=== PATIENT | female | born 1995 | race Caucasian/White ===

== ENCOUNTER 2019-05-26 06:02 | Inpatient (IN) | payer BC ==
[2019-05-26] VITALS (55 sets, daily range): BP systolic 91–145; BP diastolic 53–103
[~2019-05-26] VITALS: Ht 160 cm; Wt 70.4 kg
--- OUTSIDE RECORDS SUMMARY | 2019-05-26 06:07 | XMS REPORT | Continuity of Care Document ---
Author Organization Unknown Address Unknown Allergies There is no data. Medications There is no data. Problems There is no data. Procedures There is no data. Results Test Result Range SYPHILIS (RPR W/ REFLEX CONFIRMATION) - 03/09/19 15:09 RPR (DX) W/REFL TITER AND CONFIRMATORY TESTING NON-REACTIVE NON-REACTIVE CULTURE, ANAEROBIC AND AEROBIC - 04/20/19 13:21 CULTURE, ANAEROBIC BACTERIA W/GRAM STAIN SEE NOTE NRG CULTURE, AEROBIC BACTERIA SEE NOTE NRG CULTURE, GROUP B STREP (VAGINAL) - 05/12/19 17:31 STREPTOCOCCUS, GROUP B CULTURE SEE NOTE NRG Encounters ACCT No. Visit Date/Time Discharge Status Pt. Type Provider Facility Loc./Unit Complaint [id number] 05/19/2019 13:00:00 05/19/2019 23:59:59 CLS Outpatient KATHARINE BELTRÁN LAC [facility] [id number] 05/12/2019 14:15:00 Document Registration [id number] 04/20/2019 13:00:00 Document Registration [id number] 03/09/2019 13:45:00 Document Registration
--- NOTE | 2019-05-26 06:15 | NUR ---
BRENNENJOSE Chaparro presented to unit via ambulation from ED, accompanied by , with c/o INDUCTION. BRENNENJOSE Chaparro weighed, gowned, voided, and to bed. EFHM and TOCO applied, VS taken. BRENNENJOSE Chaparro oriented to bed controls, call light, TV, heat, and A/C controls.
[2019-05-26] MEDS ORDERED: PREN1TAB79 PO (06:16)
[2019-05-26] MEDS ORDERED: MINERAL OIL CONCENTRATE 99.9% 15 ML UDC TOP PRN (06:30)
[2019-05-26] MEDS ORDERED: OXYTOCIN/NORMAL SALINE 500 ML IV ONE (07:01)
[2019-05-26 07:06] LABS: BASOPHILS % (AUTO) 0 % (0-10); EOSINOPHILS # (AUTO) 0.1 10^3/uL (0.0-0.3); EOSINOPHILS % (AUTO) 1 % (0-10); HEMATOCRIT 36 % (35-52); HEMOGLOBIN 11.9 G/DL (11.5-16.0); LYMPHOCYTES # (AUTO) 1.5 X 10^3 (1.0-4.0); LYMPHOCYTES % (AUTO) 19 % (12-44); MEAN CORPUSCULAR HEMOGLOBIN 28 PG (25-34); MEAN CORPUSCULAR HGB CONC 33 G/DL (32-36); MEAN CORPUSCULAR VOLUME 84 FL (80-99); MEAN PLATELET VOLUME 13.1 FL (7.4-10.4); MONOCYTES # (AUTO) 0.7 X 10^3 (0.0-1.0); MONOCYTES % (AUTO) 9 % (0-12); NEUTROPHILS # (AUTO) 5.5 X 10^3 (1.8-7.8); NEUTROPHILS % (AUTO) 70 % (42-75); PLATELET COUNT 171 10^3/uL (130-400); WHITE BLOOD COUNT 7.8 10^3/uL (4.3-11.0)
[2019-05-26] MEDS: D5 LR IV SOLUTION 1,000 ML IV SCH ×2 (07:10→12:29)
--- NOTE | 2019-05-26 07:21 | History & Physical-OB/GYN ---
History of Present Illness History of Present Illness Reason for visit/HPI Scheduled Pitocin Induction of Labor Date of Admission May 26, 2019 at 06:02 Date Seen by a Provider: May 26, 2019 Time Seen by a Provider: 07:05 I consulted on this patient on 05/26/19 07:16 Attending Physician Gilbert Petersen DO Admitting Physician Gilbert Petersen DO Consult Allergies and Home Medications Allergies Coded Allergies: prochlorperazine (Verified Allergy, Intermediate, pt freaks out, 05/26/19) Home Medications Vit W-Ca,Fe,FA(<1 mg) 1 Each Tablet, 1 EACH PO DAILY, (Reported) Patient Home Medication List Home Medication List Reviewed: Yes Past Jkfufbj-Tsmsen-Yirvhp Hx Patient Social History Marrital Status: Number of Children: 0 Number of living children: 0 Employed/Student: employed Recent Foreign Travel: No Contact w/other who traveled: No Review of Systems Constitutional: no symptoms reported, see HPI Physical Exam Physical Exam Vital Signs Capillary Refill : Labs Laboratory Tests 05/26/19 06:45: White Blood Count 7.8, Red Blood Count 4.28L, Hemoglobin 11.9, Hematocrit 36, Mean Corpuscular Volume 84, Mean Corpuscular Hemoglobin 28, Mean Corpuscular Hemoglobin Concent 33, Red Cell Distribution Width 13.0, Platelet Count 171, Mean Platelet Volume 13.1H, Neutrophils (%) (Auto) 70, Lymphocytes (%) (Auto) 19, Monocytes (%) (Auto) 9, Eosinophils (%) (Auto) 1, Basophils (%) (Auto) 0, Neutrophils # (Auto) 5.5, Lymphocytes # (Auto) 1.5, Monocytes # (Auto) 0.7, Eosinophils # (Auto) 0.1, Basophils # (Auto) 0.0 General Appearance: No Apparent Distress Respiratory: Chest Non Tender, Lungs Clear, Normal Breath Sounds Cardiovascular: Regular Rate, Rhythm, No Murmur Abdominal: normal bowel sounds, non tender, distended (Gravid) Extremity: Normal Inspection, Non Tender Assessment/Plan Assessment and Plan Assessment: Intrauterine at 39 weeks Plan : Pitocin Induction of Labor. Artificial Rupture of Membranes. Placement of Epidural Anesthesia. Expect a normal spontaneous vaginal delivery Admission Diagnosis Admission Status: Inpatient Order (span 2 midnights) Reason for Inpatient Admission: Pitocin Induction of Labor GILBERT PETERSEN DO May 26, 2019 07:21
[2019-05-26] MEDS ORDERED: SUFENTA 0.6MCG/ML BUPIVA 0.125 100 ML ONE (07:27)
[2019-05-26] MEDS ORDERED: fentaNYL INJECTION 100 MCG/2 ML AMP ONE ×2 (08:16→13:47)
[2019-05-26] MEDS ORDERED: BUPIVACAINE 0.25% 30 ML (SENSORCAINE) VIAL ONE ×2 (08:17→15:26)
[2019-05-26] MEDS ORDERED: LIDOCAINE PF 2% 5 ML (XYLOCAINE) VIAL ONE ×2 (08:17→13:40)
[2019-05-26] MEDS ORDERED: LACTATED RINGERS 1,000 ML IV ONE ×2 (09:20)
[2019-05-26] MEDS ORDERED: OXYTOCIN/NORMAL SALINE 500 ML IV SCH ×2 (09:26→16:49)
--- NOTE | 2019-05-26 09:29 | NUR ---
Riddhi Horan DEVELOPMENT EXPERT notified of pt complaint of pain in LLQ/Lt back pain. Epidural infusing and bolus given without relief. Pt also has anxiety. Rates pain 7.
[2019-05-26] MEDS ORDERED: EPIDURAL (SUFENTA 0.6MCG/ML BUPIVA 0.125%) 100 ML BAG EPI PRN (09:30)
[2019-05-26] MEDS ORDERED: NALOXONE 0.4 MG/ML 1 ML (NARCAN) VIAL IV PRN (09:30)
[2019-05-26] MEDS ORDERED: ONDANSETRON 4 MG/2 ML (SDV) Z0FRAN IV PRN (09:30)
[2019-05-26] MEDS ORDERED: LIDOCAINE 1% INJ 20 ML 20 ML VIAL ONE ×2 (12:22→15:05)
[2019-05-26] MEDS ORDERED: CATHETER FLUSH 10 ML SYR IV SCH ×2 (14:00→22:00)
--- NOTE | 2019-05-26 16:49 | OB Labor & Delivery Record ---
Vag Delivery Note Vag Delivery Note Date of Delivery: 05/26/19 Preoperative Diagnosis: Mary Jo Crowder is a (23 /Para / ,39 Gestational Age (wks)with [] Postoperative Diagnosis: Same Surgeon: TIMA LITTLEJOHN Procurement Buyer: [None] Anesthesia: [Epidural] Delivery Type: [Normal Spontaneous Vaginal Delivery with Midline Episiotomy and Fourth Degree Extension and Repair] Findings: [] Viable [male] infant, apgars [], weight [7 pounds, 2 ounces] Lacerations: Midline episiotomy with fourth degree extension and repair Intact placenta with 3 vessel cord. No nuchal cord, body cord or shoulder dystocia Cytotec 800 mcg placed for hemorrhage prophylaxis Estimated Blood Loss: [300] ml Complications: Shoulder and body cord Condition: Stable Description of Procedure: The patient is a 23 year old female who presented [for Pitocin Induction]. She was admitted and informed consent was obtained. Her labor course was unremarkable. She progressed to complete dilatation and began to push. She was then set up for delivery. The infant's head was delivered atraumatically in the [BACILIO] position. The shoulders and remainder of the infant's body were then delivered without difficulty. Upon delivery, the head was held below the level of the perineum and the mouth and nares were bulb suctioned. The cord was doubly clamped and cut and the infant was handed off to the pediatric staff. An intact placenta with 3-vessel cord delivered via Cassius and there was found to be minimal bleeding.~ Vigorous fundal massage was performed and the fundus was found to be firm. IV oxytocin was given. Examination of the vagina and perineum revealed a [fourth degree extension over midline episiotomy] repaired in the usual fashion with 2-0, 3-0 and 4-0 vicryl suture. Following the repair, sponge, instrument and needle counts were correct. Mom and baby were both in stable condition in the labor suite. Vitals - Labs Vital Signs - I&O Vital Signs Date Time Temp Pulse Resp B/P (MAP) Pulse Ox O2 Delivery O2 Flow Rate FiO2 05/26/19 14:15 89 20 129/76 (93) 99 Room Air 05/26/19 14:00 91 20 124/85 (98) 100 Room Air 05/26/19 13:45 97.0 102 20 138/103 (115) 100 Room Air 05/26/19 13:30 106 20 125/78 (94) 100 Room Air 05/26/19 11:15 88 20 119/88 (98) 100 Room Air 05/26/19 11:00 86 20 113/74 (87) 100 Room Air 05/26/19 10:45 88 20 118/75 (89) 100 Room Air 05/26/19 10:30 106 20 114/82 (93) 100 Room Air 05/26/19 10:15 73 20 103/69 (80) 98 Room Air 05/26/19 10:00 80 20 108/68 (81) 100 Room Air 05/26/19 09:45 97.6 78 20 113/77 (89) 100 Room Air 05/26/19 09:30 102 20 113/77 (89) 100 Room Air 05/26/19 09:15 95 20 145/76 (99) 100 Room Air 05/26/19 09:00 105 18 145/83 (103) 98 Room Air 05/26/19 08:45 107 18 124/76 (92) Room Air 05/26/19 08:30 107 18 144/68 (93) Room Air 05/26/19 08:15 107 18 144/68 (93) Room Air 05/26/19 08:00 102 18 110/76 (87) Room Air 05/26/19 07:45 104 18 121/86 (98) Room Air 05/26/19 07:30 104 18 121/86 (98) Room Air 05/26/19 07:15 99.3 106 18 123/93 (103) Room Air Labs Laboratory Tests 05/26/19 06:45: White Blood Count 7.8, Red Blood Count 4.28L, Hemoglobin 11.9, Hematocrit 36, Mean Corpuscular Volume 84, Mean Corpuscular Hemoglobin 28, Mean Corpuscular Hemoglobin Concent 33, Red Cell Distribution Width 13.0, Platelet Count 171, Mean Platelet Volume 13.1H, Neutrophils (%) (Auto) 70, Lymphocytes (%) (Auto) 19, Monocytes (%) (Auto) 9, Eosinophils (%) (Auto) 1, Basophils (%) (Auto) 0, Neutrophils # (Auto) 5.5, Lymphocytes # (Auto) 1.5, Monocytes # (Auto) 0.7, Eosinophils # (Auto) 0.1, Basophils # (Auto) 0.0 TIMA LITTLEJOHN DO May 26, 2019 16:49
[2019-05-26] MEDS ORDERED: TETANUS,DIPTH,PERTUSS P/F (BOOSTRIX) 0.5 ML VIAL IM ONE (17:00)
[2019-05-26] MEDS ORDERED: WITCH HAZEL(TUCKS) 40 EA JAR TOP PRN (17:00)
[2019-05-26] MEDS ORDERED: MEASLES,MUMPS,RUBELLA 1 EA INJ SQ ONE (17:00)
[2019-05-26] MEDS: IBUPROFEN 800 MG (MOTRIN) TAB PO SCH (17:20)
[2019-05-26] MEDS: BENZOCAINE/MENTHOL (DERMOPLAST) 56 ML CAN TP PRN (17:25)
[2019-05-26] MEDS: ACETAMINOPHEN 500 MG TAB (TYLENOL) PO SCH (19:20)
--- NOTE | 2019-05-26 21:30 | NUR ---
Transferred to room 311 via wheelchair.
[2019-05-26] MEDS: DOCUSATE SODIUM 100 MG (COLACE) CAP PO SCH (21:39)
--- NOTE | 2019-05-26 23:00 | NUR ---
Infant to nsy while pt rests.
[2019-05-27] MEDS: IBUPROFEN 800 MG (MOTRIN) TAB PO SCH ×3 (01:13→17:29)
[2019-05-27] MEDS: ACETAMINOPHEN 500 MG TAB (TYLENOL) PO SCH ×3 (01:13→14:39)
--- NOTE | 2019-05-27 01:14 | NUR ---
Pt up to void at this time.
[2019-05-27 03:00] VITALS: BP 122/77
--- NOTE | 2019-05-27 03:15 | NUR ---
Instructions and demonstration provided on how to swaddle infant.
[2019-05-27 06:35] VITALS: BP 118/80
--- NOTE | 2019-05-27 06:43 | Discharge Summary ---
Diagnosis/Chief Complaint Date of Admission May 26, 2019 at 06:02 Date of Discharge May 27, 2019 Discharge Date: May 27, 2019 Discharge Time: 16:30 Admission Diagnosis Admission Diagnosis Intrauterine at 39 weeks Discharge Diagnosis Intrauterine at 39 weeks--delivered Reason Hospital Visit Scheduled Pitocin Induction of Labor Discharge Summary Hospital Course Was the Problem List Reviewed?: Yes Hospital Course Ms. Crowder was admitted for Pitocin Induction of Labor. She progressed to complete, delivered a healthy viable male infant. She was started on Pitocin, oral pain medications and comfort measures were instituted. Her day of delivery was unremarkable. Day #1 was unremarkable--bleeding had slowed, pain was controlled with oral medications and was doing well. Her vital signs remained stable throughout her hospitalization. I will discharge her to home with instructions, prescriptions, and a follow up appointment. Labs Laboratory Tests 05/26/19 06:45: Red Blood Count 4.28L, Mean Platelet Volume 13.1H Procedures None. Discharge Physical Examination Allergies: Coded Allergies: prochlorperazine (Verified Allergy, Intermediate, pt freaks out, 05/26/19) Vitals & I&Os Vital Signs Date Time Temp Pulse Resp B/P (MAP) Pulse Ox O2 Delivery O2 Flow Rate FiO2 05/27/19 03:00 97.2 89 18 122/77 (92) Room Air 05/26/19 22:50 97 General Appearance: Alert, Oriented X3, Cooperative HEENT: Atraumatic Respiratory: Clear to Auscultation, Normal Air Movement Cardiovascular: Regular Rate, No Murmurs Abdominal: Normal Bowel Sounds, Soft, No Tenderness Extremities: No Clubbing, No Cyanosis Skin: No Rashes Neuro: Normal Gait, Normal Speech, Cranial Nerves 3-12 NL Psych/Mental Status: Mental Status NL Discharge Home Medications Reviewed and agree with Discharge Medication list on patient's Discharge Instruction sheet Instructions to Patient/Family Please see electronic discharge instructions given to patient. Clinical Quality Measures DVT/VTE Risk/Contraindication: Risk Factor Score Per Nursin RFS Level Per Nursing on Admit: 1=Low/No VTE PPX TIMA LITTLEJOHN DO May 27, 2019 06:43
[2019-05-27] MEDS ORDERED: OXC5T PO (06:46)
[2019-05-27] MEDS ORDERED: ACET-77 PO (06:46)
[2019-05-27] MEDS ORDERED: DOCU100C37 PO (06:46)
[2019-05-27] MEDS ORDERED: IBUP-1780 PO (06:46)
[2019-05-27 06:50] LABS: BASOPHILS % (AUTO) 0 % (0-10); EOSINOPHILS # (AUTO) 0.1 10^3/uL (0.0-0.3); EOSINOPHILS % (AUTO) 1 % (0-10); HEMATOCRIT 35 % (35-52); HEMOGLOBIN 11.2 G/DL (11.5-16.0); LYMPHOCYTES # (AUTO) 2.1 X 10^3 (1.0-4.0); LYMPHOCYTES % (AUTO) 17 % (12-44); MEAN CORPUSCULAR HEMOGLOBIN 28 PG (25-34); MEAN CORPUSCULAR HGB CONC 32 G/DL (32-36); MEAN CORPUSCULAR VOLUME 86 FL (80-99); MEAN PLATELET VOLUME 12.3 FL (7.4-10.4); MONOCYTES % (AUTO) 8 % (0-12); NEUTROPHILS % (AUTO) 74 % (42-75); PLATELET COUNT 166 10^3/uL (130-400); RED CELL DISTRIBUTION WIDTH 13.4 % (10.0-14.5); WHITE BLOOD COUNT 12.2 10^3/uL (4.3-11.0)
[2019-05-27] MEDS: DOCUSATE SODIUM 100 MG (COLACE) CAP PO SCH (08:30)
[2019-05-27 08:40] VITALS: BP 122/68
--- NOTE | 2019-05-27 09:00 | NUR ---
Ice pack given.
[2019-05-27 12:20] VITALS: BP 120/83
--- NOTE | 2019-05-27 14:05 | Anesthesia-Regional Post-Op ---
Regional Patient Condition Mental Status: Alert, Oriented x3 Circulation: Same as Pre-Op Headache: Absent Sensation: Full Recovery Motor Block: Absent Post Op Complications Complications None Follow Up Care/Instructions Patient Instructions None needed. Anesthesia/Patient Condition Patient is doing well, no complaints, stable vital signs, no apparent adverse anesthesia problems. No complications reported per nursing. GAY MENDEZ CRNA May 27, 2019 14:05
[2019-05-27] MEDS ORDERED: TETANUS,DIPTH,PERTUSS P/F (BOOSTRIX) 0.5 ML VIAL IM ONE (18:14)
--- NOTE | 2019-05-27 19:17 | NUR ---
Discharge instructions explained to pt with copy provided to pt along with prescriptions. Pt notified of follow up appt. Pt verbalizes understanding of instructions, signs to verify. All questions answered to pt satisfaction. Pads, underwear, bath wipes, and dermoplast provided per pt request. Ice pack provided as well. Instructed pt to call when ready for dismissal.
[2019-05-27] MEDS: BENZOCAINE/MENTHOL (DERMOPLAST) 56 ML CAN TP PRN (19:30)
--- NOTE | 2019-05-27 20:15 | NUR ---
Pt taken off unit via wheelchair to private vehicle with all personal belongings, accompanied by RN, S.O. and infant. no s/s of distress noted.
== END 2019-05-27 20:15 | disposition home or self-care (01) | DRG 768 ==
LOC: LDRP 06:02
PROVIDERS: ADMIT Obstetrics & Gynecology; ATTEND Obstetrics & Gynecology
PROC: 10E0XZZ Delivery of Products of Conception, External Approach (ICD-10-PCS; principal; 2019-05-26)
PROC: 0DQQ0ZZ Repair Anus, Open Approach (ICD-10-PCS; 2019-05-26)
PROC: 0DQP0ZZ Repair Rectum, Open Approach (ICD-10-PCS; 2019-05-26)
PROC: 0W8NXZZ Division of Female Perineum, External Approach (ICD-10-PCS; 2019-05-26)
PROC: 3E033VJ Introduction of Other Hormone into Peripheral Vein, Percutaneous Approach (ICD-10-PCS; 2019-05-26)
DX: O70.3 Fourth degree perineal laceration during delivery (principal); O69.82X0 Labor and delivery complicated by other cord entanglement, without compression, not applicable or unspecified; Z3A.39 39 weeks gestation of pregnancy; Z37.0 Single live birth
CPT/HCPCS: 36415; 85025; 86850; 86900; 86901; 90715

== ENCOUNTER 2020-06-30 11:42 | Outpatient (RCR) | payer BC ==
[~2020-06-30] VITALS: Ht 162.6 cm; Wt 65.5 kg
[~2020-06-30 11:42] MED LIST: ACET-78 PO; DOCU100C37 PO; IBUP-1780 PO; OXC5T PO; PREN1TAB79 PO
[2020-06-30 11:50] VITALS: BP 141/91
[2020-06-30] MEDS ORDERED: ONDANSETRON 4 MG/2 ML (SDV) Z0FRAN ONE (12:45)
[2020-06-30] MEDS ORDERED: ONDANSETRON 4 MG/2 ML (SDV) Z0FRAN IV ONE (13:00)
== END 2020-09-28 | disposition home or self-care (01) ==
LOC: SDC 11:42
PROVIDERS: ATTEND Obstetrics & Gynecology
DX: O21.0 Mild hyperemesis gravidarum (principal); Z3A.00 Weeks of gestation of pregnancy not specified
CPT/HCPCS: 36569; 76937; 96374; C1751

== ENCOUNTER 2020-07-06 17:42 | Emergency (ER) | payer BC ==
[~2020-07-06] VITALS: Ht 162.6 cm; Wt 66.1 kg
--- NOTE | 2020-07-06 17:57 | ED GI ---
General Stated Complaint: VOMITING,DEHYDRATION Source of Information: Patient Exam Limitations: No Limitations History of Present Illness Date Seen by Provider: Jul 06, 2020 Time Seen by Provider: 17:50 Initial Comments The patient is a pleasant 24-year-old female who states she is 14 weeks and presents for evaluation of nausea and vomiting. She has been doing with hyperemesis gravidarum during this and has a PICC line in the right arm. She states that a home health nurse was doing a routine visit today and changing her dressing when she felt like her heart rate was fluctuating between 70 and 100 bpm. At that time the patient was not having any symptoms. Apparently the home health nurse called the patient's REWEAVER, Dr. Petersen, and told her to come to the emergency department to be evaluated. Additionally the patient has been receiving IV Zofran by mail but ran out and is supposed to receive the next shipment today but has not received yet. She denies abdominal pain, fevers or chills, diarrhea, back or flank pain, urinary complaints, chest pain or shortness of breath, palpitations, dizziness or syncope. She is alert and oriented 4, calm, and appears to be in no distress. She states that she has lost approximately 20 pounds during this already and the Dr. Hoffman is aware. Timing/Duration: 12 Hours Severity/Quality: Moderate Activities at Onset: None Associated Symptoms: No Back Pain, No Chest Pain, No Diaphoresis, No Fever/Chills, No Headache; Nausea/Vomiting; No Shortness of Air, No Swelling/Mass in Abdomen, No Syncope, No Weakness Allergies and Home Medications Allergies Coded Allergies: prochlorperazine (Verified Allergy, Intermediate, pt freaks out, 05/26/19) Home Medications Acetaminophen 500 Mg Tablet, 1,000 MG PO Q6HR Prescribed by: TIMA PETERSEN on 05/27/19645 Docusate Sodium 100 Mg Capsule, 100 MG PO BID Prescribed by: TIMA PETERSEN on 05/27/19645 Ibuprofen 800 Mg Tablet, 800 MG PO Q8H Prescribed by: TIMA PETERSEN on 05/27/19645 Oxycodone Hcl 5 Mg Tab, 5 MG PO Q6H PRN for PAIN-SEVERE Prescribed by: TIMA PETERSEN on 05/27/19645 Vit W-Ca,Fe,FA(<1 mg) 1 Each Tablet, 1 EACH PO DAILY, (Reported) Patient Home Medication List Home Medication List Reviewed: Yes Review of Systems Review of Systems Constitutional: no symptoms reported EENTM: No Symptoms Reported Respiratory: No Symptoms Reported Cardiovascular: No Symptoms Reported Gastrointestinal: Nausea, Vomiting Genitourinary: No Symptoms Reported Musculoskeletal: no symptoms reported Skin: no symptoms reported Psychiatric/Neurological: No Symptoms Reported Endocrine: No Symptoms Reported Hematologic/Lymphatic: No Symptoms Reported All Other Systems Reviewed Negative Unless Noted: Yes Past Hmfptjq-Oguovr-Vsbfaf Hx Past Med/Social Hx: Reviewed Nursing Past Med/Soc Hx Patient Social History Recent Foreign Travel: No Contact w/Someone Who Travel: No Family Medical History Drug abuse (Pt adopted - does not know history except biological mom was a drug user) 20 MOTHER, Onset:Unknown Physical Exam Vital Signs Vital Signs - First Documented 07/06/20 18:16 Temp 36.8 Pulse 91 Resp 16 B/P (MAP) 122/84 (97) Pulse Ox 99 O2 Delivery Room Air Capillary Refill : Height/Weight/BMI Height: 5'3.00" Weight: 155lbs. 2.0oz. [id number]; 27.5 BMI Method: General Appearance: WD/WN, no apparent distress HEENT: PERRL/EOMI, TMs normal Neck: non-tender, full range of motion, supple Respiratory: lungs clear, normal breath sounds, no respiratory distress, no accessory muscle use Cardiovascular: regular rate, rhythm, no edema, no JVD Gastrointestinal: normal bowel sounds, non tender, soft, no pulsatile mass Extremities: normal range of motion, non-tender, normal inspection, no pedal edema Neurologic/Psychiatric: district customs director II-XII nml as tested, no motor/sensory deficits, alert, normal mood/affect, oriented x 3 Skin: normal color, warm/dry Progress/Results/Core Measures Results/Orders Lab Results Laboratory Tests Test 07/06/20 18:16 Range/Units White Blood Count 6.5 4.3-11.0 10^3/uL Red Blood Count 4.69 4.35-5.85 10^6/uL Hemoglobin 13.4 11.5-16.0 G/DL Hematocrit 40 35-52 % Mean Corpuscular Volume 86 80-99 FL Mean Corpuscular Hemoglobin 29 25-34 PG Mean Corpuscular Hemoglobin Concent 33 32-36 G/DL Red Cell Distribution Width 12.6 10.0-14.5 % Platelet Count 260 130-400 10^3/uL Mean Platelet Volume 11.0 H 7.4-10.4 FL Neutrophils (%) (Auto) 65 42-75 % Lymphocytes (%) (Auto) 27 12-44 % Monocytes (%) (Auto) 6 0-12 % Eosinophils (%) (Auto) 2 0-10 % Basophils (%) (Auto) 1 0-10 % Neutrophils # (Auto) 4.2 1.8-7.8 X 10^3 Lymphocytes # (Auto) 1.7 1.0-4.0 X 10^3 Monocytes # (Auto) 0.4 0.0-1.0 X 10^3 Eosinophils # (Auto) 0.1 0.0-0.3 10^3/uL Basophils # (Auto) 0.0 0.0-0.1 10^3/uL Sodium Level 138 135-145 MMOL/L Potassium Level 3.8 3.6-5.0 MMOL/L Chloride Level 105 98-107 MMOL/L Carbon Dioxide Level 20 L 21-32 MMOL/L Anion Gap 13 5-14 MMOL/L Blood Urea Nitrogen 5 L 7-18 MG/DL Creatinine 0.58 L 0.60-1.30 MG/DL Estimat Glomerular Filtration Rate > 60 BUN/Creatinine Ratio 9 Glucose Level 87 70-105 MG/DL Calcium Level 9.6 8.5-10.1 MG/DL Corrected Calcium 9.5 8.5-10.1 MG/DL Total Bilirubin 0.3 0.1-1.0 MG/DL Aspartate Amino Transf (AST/SGOT) 19 5-34 U/L Alanine Aminotransferase (ALT/SGPT) 26 0-55 U/L Alkaline Phosphatase 70 40-136 U/L Total Protein 7.6 6.4-8.2 GM/DL Albumin 4.1 3.2-4.5 GM/DL My Orders Orders - JONAH VILLANUEVA DO Ondansetron Injection (Zofran Injectio (07/06/20 18:00) Ns Iv 1000 Ml (Sodium Chloride 0.9%) (07/06/20 18:00) Cbc With Automated Diff (07/06/20 17:51) Comprehensive Metabolic Panel (07/06/20 17:51) Medications Given in ED Current Medications Medications Dose Ordered Sig/Tony Route Start Time Stop Time Status Last Admin Dose Admin Ondansetron HCl 4 mg ONCE ONCE IVP 07/06/20 18:00 07/06/20 18:01 DC 07/06/20 18:14 4 MG Vital Signs/I&O 07/06/20 18:16 Temp 36.8 Pulse 91 Resp 16 B/P (MAP) 122/84 (97) Pulse Ox 99 O2 Delivery Room Air Progress Progress Note : Progress Note @1905 - the patient states she is feeling much better and is asked to go home. Labs unremarkable. Advised patient to follow up with her REWEAVER in the next 1-2 days and return to the emergency Department immediately for new or worsening symptoms. Departure Impression Primary Impression: Hyperemesis gravidarum Disposition: HOME, SELF-CARE Condition: Stable Departure-Patient Inst. Decision time for Depature: 19:06 Referrals: TIMA PETERSEN DO (PCP/Family) Primary Care Physician Patient Instructions: Hyperemesis Gravidarum Add. Discharge Instructions: Take your prescribed Zofran as directed. Return to the emergency Department immediately for new or worsening symptoms. Follow-up with your REWEAVER in the next 1-2 days. JONAH VILLANUEVA DO Jul 06, 2020 17:57
[2020-07-06] MEDS ORDERED: NS IV 1000 ML 1,000 ML IV SCH (18:00)
[2020-07-06] MEDS ORDERED: ONDANSETRON 4 MG/2 ML (SDV) Z0FRAN IVP ONE ×3 (18:00→20:00)
[2020-07-06 18:28] LABS: WHITE BLOOD COUNT 6.5 10^3/uL (4.3-11.0)
[2020-07-06 18:29] LABS: BASOPHILS % (AUTO) 1 % (0-10); EOSINOPHILS # (AUTO) 0.1 10^3/uL (0.0-0.3); EOSINOPHILS % (AUTO) 2 % (0-10); HEMATOCRIT 40 % (35-52); HEMOGLOBIN 13.4 G/DL (11.5-16.0); LYMPHOCYTES # (AUTO) 1.7 X 10^3 (1.0-4.0); LYMPHOCYTES % (AUTO) 27 % (12-44); MEAN CORPUSCULAR HEMOGLOBIN 29 PG (25-34); MEAN CORPUSCULAR HGB CONC 33 G/DL (32-36); MEAN CORPUSCULAR VOLUME 86 FL (80-99); MONOCYTES # (AUTO) 0.4 X 10^3 (0.0-1.0); MONOCYTES % (AUTO) 6 % (0-12); NEUTROPHILS # (AUTO) 4.2 X 10^3 (1.8-7.8); NEUTROPHILS % (AUTO) 65 % (42-75); PLATELET COUNT 260 10^3/uL (130-400); RED CELL DISTRIBUTION WIDTH 12.6 % (10.0-14.5)
[2020-07-06 18:45] LABS: ALANINE AMINOTRANSFERASE 26 U/L (0-55); ALBUMIN 4.1 GM/DL (3.2-4.5); ALKALINE PHOSPHATASE 70 U/L (40-136); BILIRUBIN,TOTAL 0.3 MG/DL (0.1-1.0); BUN/CREATININE RATIO 9; CALCIUM 9.6 MG/DL (8.5-10.1); CARBON DIOXIDE 20 MMOL/L (21-32); CHLORIDE 105 MMOL/L (98-107); CREATININE SERUM 0.58 MG/DL (0.60-1.30); GFR ESTIMATED > 60; GLUCOSE 87 MG/DL (70-105); POTASSIUM 3.8 MMOL/L (3.6-5.0); SODIUM 138 MMOL/L (135-145); TOTAL PROTEIN 7.6 GM/DL (6.4-8.2)
--- NOTE | 2020-07-06 18:53 | NUR ---
Report was given to LARY Fink at this time. Care was transferred.
[2020-07-06] MEDS ORDERED: RX-ONDANSETRON 4 MG ODT (ZOFRAN) PPK #4 ONE (19:54)
[2020-07-06] MEDS ORDERED: RX-ONDANSETRON 4 MG ODT (ZOFRAN) PPK #4 PO STA (19:56)
[2020-07-06 20:22] VITALS: BP 107/62
== END 2020-07-06 20:21 | disposition home or self-care (01) ==
LOC: EDUNIT# 17:42 → ER FS 17:43
DX: O21.0 Mild hyperemesis gravidarum (principal); Z3A.14 14 weeks gestation of pregnancy; Z88.8 Allergy status to other drugs, medicaments and biological substances
CPT/HCPCS: 36415; 80053; 85025